=== PATIENT | female | born 1950 | race Caucasian/White ===

== ENCOUNTER 2024-08-16 17:01 | Emergency (ER) | payer MEDICARE, SELFPAY ==
[2024-08-16] VITALS (7 sets, daily range): BP systolic 141–161; BP diastolic 67–79; PULSE 97; RESP 16; TEMP 36.7; O2SAT 96–100
--- NOTE | 2024-08-16 17:21 | ECG_ITS ---
Test Date: 2024-08-16 17:57:05 Measurements Intervals [place] Rate: 75 P: 56 ME: 156 QRS: -9 QRSD: 86 T: 29 QT: 376 QTc: 420 Interpretive Statements SINUS RHYTHM LOW QRS VOLTAGE IN PRECORDIAL LEADS BORDERLINE ECG No previous ECG available for comparison Electronically Signed On 08-16-2024 18:46:45 LOOM OPERATOR by Richy Lawrence D.O.
[2024-08-16 17:43] LABS: Basophils Percent Auto 0.6 % (0.2-1.2); Eosinophils Absolute Auto 0.3 K/mm3 (0-0.3); Eosinophils Percent Auto 5.3 % (0-4.4); Hematocrit 34.6 % (37.0-47.0); Hemoglobin 10.8 g/dL (12.0-15.0); Immature Granulocyte Absolute 0.01 K/mm3 (0.00-0.031); Immature Granulocyte Percent A 0.2 % (0-0.5); Lymphocytes Absolute Auto 2.75 K/mm3 (0.9-3.2); Lymphocytes Percent Auto 44.2 % (18.3-44.2); Mean Corpuscular HGB Conc 31.2 g/dl (32-36); Mean Corpuscular Hemoglobin 29.1 pg (26-34); Mean Corpuscular Volume 93.3 fl (80-100); Mean Platelet Volume 8.9 fl (7.4-10.4); Monocytes Absolute Auto 0.6 K/mm3 (0.1-0.6); Monocytes Percent Auto 9.8 % (2.6-8.5); Neutrophils Absolute Auto 2.5 K/mm3 (1.3-6.7); Neutrophils Percent Auto 39.9 % (45.5-73.1); Platelet Count Result 267 k/mm3 (150-375); Red Blood Count 3.71 M/mm3 (4.2-5.4); Red Cell Distribution Width 13.9 % (11.5-14.5); White Blood Count 6.2 K/mm3 (4.5-10.0)
[2024-08-16 17:54] LABS: Anion Gap 6 mmol/L (4-12); Blood Urea Nitrogen 19 mg/dL (7-17); Calcium 9.2 mg/dL (8.4-10.2); Carbon Dioxide 27 mmol/L (22-30); Chloride 106 mmol/L (98-107); Estimated CRCL calculation 48 ml/min; Estimated Glomerular Filt Rate 54; Glucose 96 mg/dL (65-110); Potassium 4.1 mmol/L (3.4-5.0); Sodium 139 mmol/L (137-145)
--- NOTE | 2024-08-16 17:58 | ED.RECABL ---
HPI - Recheck/Abnormal Lab/Rx General Chief Complaint: Recheck/Abnormal Lab/Rx Stated Complaint: high blood pressure Time Seen by Provider: 08/16/24 17:15 History of Present Illness HPI narrative: Patient presents here after seeing that her blood pressure home seemed to be high (140/100?); about a week ago she had also had an episode of dizziness associated with explosive diarrhea. She is feeling fine now. Review of Systems Review of Systems: All systems reviewed & are unremarkable except as noted in HPI and below Exam Narrative: EXAMINATION OF ORGAN SYSTEMS/BODY AREAS: Constitutional: Vital signs per nursing GENERAL:[No acute distress, non-toxic appearing.] HEAD: Normal with no signs of head trauma. EYES: EOMI, conjunctiva normal ENT: Hearing grossly intact LUNGS: Nonlabored breathing. HEART: [Regular rate and rhythm] ABD: [Soft], [nontender to palpation] EXT: Normal range of motion SKIN: [No rashes or lesions.] NEURO: [Alert and oriented x 3. No gross focal sensory or strength deficits.] PSYCH: Normal affect Course Vital Signs Vital signs: Vital Signs Temperature 98.0 F 08/16/24 17:05 Pulse Rate 97 08/16/24 17:05 Respiratory Rate 16 08/16/24 17:05 Blood Pressure 141/67 H 08/16/24 17:05 Pulse Oximetry 98 08/16/24 17:05 Oxygen Delivery Room Air 08/16/24 17:05 Temperature 98.0 F 08/16/24 17:05 Pulse Rate 97 08/16/24 17:05 Respiratory Rate 16 08/16/24 17:05 Blood Pressure 141/67 H 08/16/24 17:05 Pulse Oximetry 98 08/16/24 17:05 Oxygen Delivery Room Air 08/16/24 17:05 MDM - Recheck/Abnormal Lab/Rx MDM Narrative Medical decision making narrative: And patient presents here with initial concern for possible elevated blood pressure, MR jeremias it is not quite elevated at all and she is already on blood pressure medication, she did also have an episode about a week ago with explosive diarrhea and dizziness, however she is feeling completely fine now, she just came into reassure her family. Electrolytes obtained are within acceptable limits, as is her CBC, I did obtain EKG on my independent interpretation shows normal sinus rhythm rate 75, normal OR, QRS point QTC, axis, no ST elevations or depressions or signs for acute ischemia or arrhythmia. I do feel she is stable for discharge at this time, she does need a new primary care doctor to follow up as so I will provide our on-call doctor; return precautions given. Lab Data 08/16/24 17:38 08/16/24 17:38 Labs: Lab Results 08/16/24 Range/Units 17:38 WBC 6.2 (4.5-10.0) K/mm3 RBC 3.71 L (4.2-5.4) M/mm3 Hgb 10.8 L (12.0-15.0) g/dL Hct 34.6 L (37.0-47.0) % MCV 93.3 (80-100) fl MCH 29.1 (26-34) pg MCHC 31.2 L (32-36) g/dl RDW 13.9 (11.5-14.5) % Plt Count 267 (150-375) k/mm3 MPV 8.9 (7.4-10.4) fl Immature Gran % (Auto) 0.2 (0-0.5) % Neut % (Auto) 39.9 L (45.5-73.1) % Lymph % (Auto) 44.2 (18.3-44.2) % [place] % (Auto) 9.8 H (2.6-8.5) % Eos % (Auto) 5.3 H (0-4.4) % Baso % (Auto) 0.6 (0.2-1.2) % Lymph # (Auto) 2.75 (0.9-3.2) K/mm3 [place] # (Auto) 0.6 (0.1-0.6) K/mm3 Eos # (Auto) 0.3 (0-0.3) K/mm3 Baso # (Auto) 0.0 (0.0-0.1) K/mm3 Abs Immat Gran (auto) 0.01 (0.00-0.031) K/mm3 Absolute Neuts (auto) 2.5 (1.3-6.7) K/mm3 Absolute Nucleated RBC 0.000 (0.0-0.012) K/mm3 Nucleated RBC % 0.0 (0.0-0.2) % Sodium 139 (137-145) mmol/L Potassium 4.1 (3.4-5.0) mmol/L Chloride 106 (98-107) mmol/L Carbon Dioxide 27 (22-30) mmol/L Anion Gap 6 (4-12) mmol/L BUN 19 H (7-17) mg/dL Creatinine 1.00 (0.7-1.0) mg/dL Estim Creat Clear Calc 48 ml/min Estimated GFR 54 L (59 - ) Glucose 96 (65-110) mg/dL Calcium 9.2 (8.4-10.2) mg/dL Discharge Plan Discharge Clinical Impression: Hypertension, Normal exam Patient Disposition: Home, Self-Care Condition: Stable Instructions: Normal Exam (ED) Additional Instructions: You can call the number to follow-up with our on-call PCP. You can always return to the emergency room for any any further issues. Follow-up/Referrals: Tyrell Malik MD [Physician] - 2 Days UNKNOWN,DOCTOR [Primary Care Provider] -
== END 2024-08-16 18:13 | disposition home or self-care (01) ==
PROVIDERS: Emergency Provider Emergency Medicine
DX: I10 Essential (primary) hypertension (principal)
CPT/HCPCS: 36415; 80048; 85025; 93005; 99283

== ENCOUNTER 2025-10-03 12:50 | Outpatient (CLI) | payer MEDICARE, SELFPAY ==
--- NOTE | ~2025-10-03 | MM_ITS ---
EXAMINATION: MM screening fran BI w nya HISTORY: Screening. TECHNIQUE: Craniocaudal and mediolateral oblique 3-D tomosynthesis images were obtained and synthetic 2-D images were generated. CAD analysis was submitted and interpreted. COMPARISON: None available. BREAST PARENCHYMAL COMPOSITION: Not Dense: The breasts are almost entirely fatty FINDINGS: There is a biopsy marker on the right. There is a focal asymmetry in the lateral right breast in the mid depth. There are no suspicious calcifications. No unexplained architectural distortion is seen. There are no skin or nipple abnormalities identified. There is no adenopathy seen on the images submitted. IMPRESSION: Focal asymmetry in the right for which comparison to prior studies is recommended. BI-RADS 0 - Incomplete - needs prior mammograms for comparison. Reviewed, dictated and finalized at location C. [facility] AIDE IMPRESSION: Focal asymmetry in the right for which comparison to prior studies is recommend ed. BI-RADS 0 - Incomplete - needs prior mammograms for comparison.
== END 2025-10-03 12:51 | disposition home or self-care (01) ==
LOC: MICIMG 12:50
PROVIDERS: PCP Nurse Practitioner; Visit Provider Nurse Practitioner
DX: Z12.31 Encounter for screening mammogram for malignant neoplasm of breast (principal); R92.8 Other abnormal and inconclusive findings on diagnostic imaging of breast
CPT/HCPCS: 77063; 77067